=== PATIENT | female | born 1955 | race Caucasian/White ===

== ENCOUNTER → 2016-12-22 | Outpatient (CLI) | payer BC ==
--- NOTE | 2016-12-22 14:29 | CT ---
EXAMINATION TYPE: CT sinus wo con DATE OF EXAM: 12/22/2016 7:35 AM COMPARISON: NONE HISTORY: Patient complains of left side sinus blockage, pressure, and swelling. CT DLP: 603 mGycm Automated exposure control for dose reduction was used. Helical acquisition through the paranasal sinuses, coronal reconstructions FINDINGS: Mucoperiosteal thickening present within the sphenoid, bilateral maxillary sinuses. The ostiomeatal u nits are patent. Deviated nasal septum towards the left. The orbits show a symmetric appearance. Mola rs bilaterally show portions which appear to be present within the antrum of the left and right maxil cristopher sinus. Temporomandibular joints show some degenerative change. IMPRESSION: FINDINGS COMPATIBLE WITH CHRONIC SINUSITIS DESCRIBED.
== END | disposition home or self-care (01) ==
LOC: RADCTMAIN 07:19
PROVIDERS: ATTEND Otolaryngology
DX: J32.9 Chronic sinusitis, unspecified (principal)
CPT/HCPCS: 70486

== ENCOUNTER → 2017-04-10 | Outpatient (CLI) | payer BC | END | disposition home or self-care (01) | LOC: LABWHC1 13:10 | PROVIDERS: ATTEND Otolaryngology | DX: Z53.9 Procedure and treatment not carried out, unspecified reason (principal) ==

== ENCOUNTER → 2018-12-21 | Outpatient (CLI) | payer BC ==
[2018-12-21 17:30] LABS: LDL Cholesterol,Calculated 132.2 mg/dL (0.0-131.0); VLDL Calculation 24.8 mg/dL (5.00-40.00)
== END ==
LOC: LABWHC1 10:44
PROVIDERS: ATTEND Family Medicine
DX: E78.5 Hyperlipidemia, unspecified (principal)
CPT/HCPCS: 36415; 80061

== ENCOUNTER 2019-01-07 09:13 | Day surgery (SDC) | payer BC ==
[2019-01-02 16:21] VITALS: BMI 29.2
[~2019-01-07 09:13] MED LIST: LACTATED RINGERS 1,000 ML IV SCH; LIDOCAINE 1% 20 ML VIAL (10MG/ML) FOR IV START INTRADERMA PRN; MIDAZOLAM (PF) 2 MG/2 ML VIAL IV PRN
[2019-01-07 09:39] VITALS: RESP 16; TEMP 98.2
[2019-01-07] MEDS ORDERED: LIDOCAINE 1% INJ 10MG/ML (20 ML MDV) ONE (10:38)
[2019-01-07] MEDS ORDERED: PROPOFOL 10 MG/ML 20 ML VIAL IV ONE (10:38)
--- NOTE | 2019-01-07 10:41 | P.GSHP ---
History of Present Illness H&P Date: 01/07/19 Chief Complaint: Screening colonoscopy This is a 63-year-old female who presents today for screening colonoscopy. Patient denies a significant GI complaints. Past Medical History Additional Past Medical History / Comment(s): LYMES DISEASE, History of Any Multi-Drug Resistant Organisms: None Reported Past Surgical History: Appendectomy, Hysterectomy, Tonsillectomy Additional Past Surgical History / Comment(s): EXPLORATORY LAPAROTOMY Past Anesthesia/Blood Transfusion Reactions: No Reported Reaction Smoking Status: Former smoker - Past Family History Mother Family Medical History: Cancer Medications and Allergies Home Medications Medication Instructions Recorded Confirmed Type Colesevelam [Welchol] 1,250 mg PO 1200 01/02/19 01/07/19 History Naltrexone Compound 0.5 mg PO DAILY 01/02/19 01/07/19 History Progesterone, Micronized 100 mg PO HS 01/02/19 01/07/19 History [Progesterone] Allergies Allergy/AdvReac Type Severity Reaction Status Date / Time STEROIDS Allergy HYPER, AND Uncoded 01/07/19 09:30 SHAKY FEELING" Surgical - Exam Vital Signs Temp Pulse Resp BP Pulse Ox 98.2 F 83 16 151/63 96 01/07/19 09:35 01/07/19 09:35 01/07/19 09:35 01/07/19 09:35 01/07/19 09:35 - General well developed, well nourished, no distress - Eyes PERRL - ENT normal pinna - Neck no masses - Respiratory normal expansion - Cardiovascular Rhythm: regular - Abdomen Abdomen: soft, non tender Assessment and Plan Assessment: We'll perform screening colonoscopy.
--- NOTE | 2019-01-07 11:06 | P.OP ---
Date of Procedure: 01/07/19 Preoperative Diagnosis: Screening colonoscopy Postoperative Diagnosis: Diverticulosis Procedure(s) Performed: Colonoscopy Anesthesia: MAC Surgeon: Jakob Cordero Pathology: none sent Condition: stable Disposition: PACU Description of Procedure: The patient's placed on the endoscopy table in the lateral position. She received IV sedation. Digital rectal exam was performed which revealed no abnormalities. Flexible colonoscope was then placed patient anus and passed throughout the entire colon. Ileocecal valve was visually. The cecum, ascending and transverse colon appeared normal. In the descending and sigmoid colon there is moderate diverticular changes. There is no evidence of diverticulitis. The scope was then brought back the rectum and this appeared normal. Scope was withdrawn for patient.
[2019-01-07 11:34] VITALS: BP 123/70; PULSE 76
== END 2019-01-07 11:35 | disposition home or self-care (01) ==
LOC: ORWHC2ENDO 09:13
PROVIDERS: ATTEND Surgery
DX: Z12.11 Encounter for screening for malignant neoplasm of colon (principal); K57.30 Diverticulosis of large intestine without perforation or abscess without bleeding; Z79.890 Hormone replacement therapy; Z79.899 Other long term (current) drug therapy; Z88.8 Allergy status to other drugs, medicaments and biological substances; Z86.19 Personal history of other infectious and parasitic diseases; Z87.891 Personal history of nicotine dependence
CPT/HCPCS: J2001; J2704; G0121

== ENCOUNTER → 2019-02-11 | Outpatient (CLI) | payer BC ==
--- NOTE | 2019-02-12 08:51 | MM ---
Reason for exam: screening (asymptomatic). Last mammogram was performed 2 years and 11 months ago. History: Patient is postmenopausal, has history of endometrial cancer at age 20, and is nulliparous. Family history of breast cancer in paternal grandmother. Took estrogen for 8 years. Took progesterone for 8 years. Taking unspecified hormones for 15 years. Physical Findings: A clinical breast exam by your physician is recommended on an annual basis and results should be correlated with mammographic findings. MG Screening Mammo w CAD Bilateral CC and MLO view(s) were taken. Prior study comparison: March 21, 2016, bilateral MG screening mammo w CAD. November 14, 2008, bilateral diagnostic digital mammog. The breast tissue is heterogeneously dense. This may lower the sensitivity of mammography. Left superior posterior depth asymmetry in the retroglandular clear space. ASSESSMENT: Incomplete: need additional imaging evaluation, BI-RAD 0 RECOMMENDATION: Special view mammogram of the left breast. If lesion persists on supplemental views, image directed ultrasound is recommended. [facility] will attempt to contact patient to return for supplemental views and ultrasound if indicated.
== END | disposition home or self-care (01) ==
LOC: RADMAMWWP 10:32
PROVIDERS: ATTEND Family Medicine
DX: Z12.31 Encounter for screening mammogram for malignant neoplasm of breast (principal); Z80.3 Family history of malignant neoplasm of breast
CPT/HCPCS: 77067

== ENCOUNTER → 2019-03-04 | Outpatient (CLI) | payer BC ==
--- NOTE | 2019-03-04 14:48 | MM ---
Reason for exam: additional evaluation requested from abnormal screening. Last mammogram was performed 1 month ago. History: Patient is postmenopausal, has history of endometrial cancer at age 20, and is nulliparous. Family history of breast cancer in paternal grandmother. Took estrogen for 8 years. Taking progesterone for 8 years beginning at age 57. Taking antineoplastic beginning at age 57. Taking unspecified hormones for 15 years. Physical Findings: Nurse did not find any significant physical abnormalities on exam. MG Work Up Mamm w CAD LT Spot compression MLO, XCCL, ML, and LM view(s) were taken of the left breast. Prior study comparison: February 11, 2019, bilateral MG screening mammo w CAD. March 21, 2016, bilateral MG screening mammo w CAD. The breast tissue is heterogeneously dense. This may lower the sensitivity of mammography. The questioned posterior superior asymmetric density appears to disperse. Precautionary 6 month follow up recommended. These results were verbally communicated with the patient and result sheet given to the patient on 03/04/19. ASSESSMENT: Probably benign, BI-RAD 3 RECOMMENDATION: Follow-up diagnostic mammogram of the left breast in 6 months.
== END ==
LOC: RADMAMWWP 13:47
PROVIDERS: ATTEND Family Medicine
DX: R92.8 Other abnormal and inconclusive findings on diagnostic imaging of breast (principal)
CPT/HCPCS: 77065

== ENCOUNTER → 2021-10-20 | Outpatient (CLI) | payer BC ==
--- NOTE | 2021-10-22 10:37 | MM ---
Reason for exam: screening (asymptomatic). Last mammogram was performed 2 years and 8 months ago. History: Patient is postmenopausal, has history of endometrial cancer at age 20, and is nulliparous. Family history of breast cancer in sister at age 70 and breast cancer in paternal grandmother. Took estrogen for 8 years. Taking progesterone for 8 years beginning at age 57. Taking antineoplastic beginning at age 57. Taking unspecified hormones for 15 years. Physical Findings: A clinical breast exam by your physician is recommended on an annual basis and results should be correlated with mammographic findings. MG 3D Screening Mammo W/Cad Bilateral CC and MLO view(s) were taken. Prior study comparison: March 04, 2019, left breast MG work up mamm w CAD LT. February 11, 2019, bilateral MG screening mammo w CAD. The breast tissue is extremely dense which could obscure a lesion on mammography. Benign appearing bilateral calcifications. There is no discrete abnormality. No significant changes when compared with prior studies. ASSESSMENT: Benign, BI-RAD 2 RECOMMENDATION: Routine screening mammogram of both breasts in 1 year.
== END | disposition home or self-care (01) ==
LOC: RADMAMWWP 14:43
PROVIDERS: ATTEND Family Medicine
DX: Z12.31 Encounter for screening mammogram for malignant neoplasm of breast (principal); Z78.0 Asymptomatic menopausal state; Z80.3 Family history of malignant neoplasm of breast; Z85.42 Personal history of malignant neoplasm of other parts of uterus
CPT/HCPCS: 77063; 77067

== ENCOUNTER → 2022-02-11 | Outpatient (CLI) | payer BC ==
[2022-02-11 14:19] LABS: Chol/HDL Ratio 3.24 Ratio
== END | disposition home or self-care (01) ==
LOC: LABWHC1 09:13
PROVIDERS: ATTEND Family Medicine
DX: Z00.00 Encounter for general adult medical examination without abnormal findings (principal)
CPT/HCPCS: 36415; 80061

== ENCOUNTER → 2022-05-13 | Outpatient (CLI) | payer BC ==
[2022-05-13 14:50] LABS: Estradiol 26.6 pg/mL; Follicle Stimulating Hormone 52.9 mIU/mL
[2022-05-13 14:53] LABS: Progesterone 2.1 ng/mL; Testosterone <2.50 ng/mL (7.00-45.62)
== END | disposition home or self-care (01) ==
LOC: LABWHC1 09:13
PROVIDERS: ATTEND Specialist
DX: I10 Essential (primary) hypertension (principal); E34.9 Endocrine disorder, unspecified; E03.9 Hypothyroidism, unspecified; E55.9 Vitamin D deficiency, unspecified; E78.00 Pure hypercholesterolemia, unspecified
CPT/HCPCS: 36415; 82670; 83001; 84144; 84403; 84480

== ENCOUNTER → 2022-11-04 | Outpatient (CLI) | payer BC ==
--- NOTE | 2022-11-04 13:24 | CT ---
EXAMINATION: CT SCAN OF THE ABDOMEN AND PELVIS WITH INTRAVENOUS CONTRAST DATE OF EXAM: 11/04/2022 12:52 PM HISTORY: Severe abdominal pain. COMPARISON: None. TECHNIQUE: CT examination of the abdomen and pelvis was performed following the intravenous administr ation of 70 mL Isovue-370. CT dose lowering techniques were used, to include: automated exposure cont rol, adjustment for patient size, and/or use of iterative reconstruction. FINDINGS: ABDOMEN/PELVIS: Lower Chest: Normal. Liver: Normal. Gallbladder/Billary: Normal. Pancreas: Normal. Spleen: Normal. Adrenal Glands: Normal. Kidneys: Normal. GI Tract: There is mild sigmoid colonic diverticulosis without evidence of diverticulitis. The append ix is not clearly seen with no secondary changes of appendicitis otherwise identified. Mesentery/Peritoneum: Normal. Vasculature: Mild vascular calcification throughout the abdominal aorta without evidence of aneurysma l dilation or dissection. Lymph Nodes: Normal. Abdominal Wall: Normal. Bladder: Normal. Reproductive: Normal. Musculoskeletal: There are multilevel degenerative disc and facet changes seen throughout the spine. There are no aggressive osseous lesions. IMPRESSION: 1. Acute process seen within the abdomen or pelvis. 2. Diverticulosis without evidence of diverticulitis.
== END | disposition home or self-care (01) ==
LOC: RADCTMAIN 10:36
PROVIDERS: ATTEND Surgery Plastic and Reconstructive Surgery
DX: K57.32 Diverticulitis of large intestine without perforation or abscess without bleeding (principal)
CPT/HCPCS: 74177; Q9967

== ENCOUNTER → 2023-03-16 | Outpatient (CLI) | payer MEDICARE ==
[2023-03-16 19:31] LABS: Basophils # (A) 0.04 X 10*3/uL (0.00-0.10); Basophils % (A) 0.7 %; Eosinophils # (A) 0.11 X 10*3/uL (0.04-0.35); HCT 38.8 % (37.2-46.3); HGB 12.9 g/dL (12.0-15.0); Immature Grans, Automated 0.4 %; Lymphocytes # (A) 2.18 X 10*3/uL (0.90-5.00); Lymphocytes % (A) 39.4 %; MCH 32.3 pg (27.0-32.0); MCHC 33.2 g/dL (32.0-37.0); Mean Platelet Volume 9.8 fL (9.5-12.2); Monocytes # (A) 0.41 X 10*3/uL (0.20-1.00); Monocytes % (A) 7.4 %; NRBC Per 100 WBC 0 /100 WBCS (0.0-0.0); Neutrophils # (A) 2.77 X 10*3/uL (1.80-7.70); Neutrophils % (A) 50.1 %; Platelet Count 239 X 10*3/uL (140-440); RDW 11.9 % (11.5-14.5); WBC 5.53 X 10*3/uL (4.50-10.00)
[2023-03-17 02:05] LABS: Potassium 4.3 mmol/L (3.5-5.5)
== END | disposition home or self-care (01) ==
LOC: LABPAT 10:32
PROVIDERS: ATTEND Surgery Plastic and Reconstructive Surgery
DX: Z01.812 Encounter for preprocedural laboratory examination (principal)
CPT/HCPCS: 36415; 80051; 85025

== ENCOUNTER 2023-03-17 11:55 | Day surgery (SDC) | payer MEDICARE ==
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
[~2023-03-17 11:55] MED LIST changes: +ACETAMINOPHEN TAB 500 MG TAB PO PRN; +ALVIMOPAN 12 MG CAPSULE PO PRN; +Antibiotics per Pharmacy 1 EACH MISC MISCELLANE PRN; +DEXAMETHASONE SOD PHOSPHATE 4 MG/ML 1 ML VIAL IV ONE; +HEPARIN SODIUM,PORCINE/PF 5,000 UNIT/0.5 ML SYRINGE SQ PRN; +HYDROmorphone 0.5 MG/0.5 ML SYRINGE IVP PRN; -LIDOCAINE 1% 20 ML VIAL (10MG/ML) FOR IV START INTRADERMA PRN; -MIDAZOLAM (PF) 2 MG/2 ML VIAL IV PRN; +MIDAZOLAM 2 MG/2 ML VIAL IV PRN; +ONDANSETRON 4 MG/2 ML VIAL IVP ONE; +metroNIDAZOLE-NS PMX 500 MG in SALINE 1 100ML.BAG IVPB PRN
[2023-03-17 12:59] LABS: Glucose,Whole Blood 100 mg/dL (70-110)
[2023-03-17 13:19] LABS: Basophils % (A) 0 %; Eosinophils # (A) 0.1 k/uL (0-0.7); Eosinophils % (A) 2 %; HCT 40.1 % (34.0-46.0); HGB 13.7 gm/dL (11.4-16.0); Lymphocytes # (A) 2.3 k/uL (1.0-4.8); Lymphocytes % (A) 43 %; MCH 32.1 pg (25.0-35.0); MCHC 34.3 g/dL (31.0-37.0); MCV 93.7 fL (80.0-100.0); Mean Platelet Volume 7.9; Monocytes # (A) 0.3 k/uL (0-1.0); Monocytes % (A) 6 %; Neutrophils # (A) 2.6 k/uL (1.3-7.7); Neutrophils % (A) 47 %; Platelet Count 262 k/uL (150-450); RBC 4.28 m/uL (3.80-5.40); RDW 12.4 % (11.5-15.5); WBC 5.5 k/uL (3.8-10.6)
[2023-03-17 13:32] LABS: ALT 19 U/L (4-34); AST 22 U/L (14-36); African American GFR (CKD) >90 (>60 ml/min/1.73 sqM); Albumin 4.6 g/dL (3.5-5.0); Alkaline Phosphatase 57 U/L (38-126); Anion Gap 10 mmol/L; Blood Urea Nitrogen 10 mg/dL (7-17); Calcium 9.7 mg/dL (8.4-10.2); Carbon Dioxide 22 mmol/L (22-30); Chloride 108 mmol/L (98-107); Glucose 96 mg/dL (74-99); Non-African American GFR(CKD) >90 (>60 ml/min/1.73 sqM); Potassium 4.4 mmol/L (3.5-5.1); Sodium 140 mmol/L (137-145); Total Bilirubin 0.6 mg/dL (0.2-1.3); Total Protein 7.6 g/dL (6.3-8.2)
[2023-03-17] MEDS ORDERED: MIDAZOLAM 2 MG/2 ML VIAL IV ONE (14:05)
[2023-03-17] MEDS ORDERED: fentaNYL (PF) 50 MCG/1 ML VIAL IV ONE (14:05)
[2023-03-17] MEDS ORDERED: NA PHOS,M-B/NA PHOS,DI-BA 133 ML ENEMA RECTAL ONE ×2 (14:28→14:40)
--- NOTE | 2023-03-17 14:53 | P.ANPRN ---
Procedure Note - Anesthesia - Nerve Block Performed Bilateral Erector Spinae Time Out Performed: Yes (14:04) Date of Procedure: 03/17/23 Procedure Start Time: 14:04 Procedure Stop Time: 14:10 Location of Patient: PreOp Indication: Acute Post-Operative Pain, Requested by Surgeon (Dr Childress) Sedation Type: Sedate with meaningful contact maintained Preparation: Sterile Prep Position: Prone Catheter: None Needle Types: Pajunk Needle Gauge: 21 Ultrasound used to visualize needle placement: Yes Ultrasound used to observe medication spread: Yes Injectate: 0.5% Ropivacaine (see comment for volume) (15cc +10cc PF Normal saline each side) Blood Aspirated: No Pain Paresthesia on Injection Noted: No Resistance on Injection: Normal Image Stored and Saved: Yes Events: Uneventful and Well Tolerated
[2023-03-17] MEDS ORDERED: SODIUM CHLORIDE 0.9% (PF) 10 ML VIAL ONE (15:10)
[2023-03-17] MEDS ORDERED: LIDOCAINE 2% INJ 20 MG/ML (2 ML VIAL) ONE (15:10)
[2023-03-17] MEDS ORDERED: HEPARIN SODIUM,PORCINE 5,000 UNIT/ML 1 ML VIAL ONE (15:10)
[2023-03-17] MEDS ORDERED: ROPIVACAINE 5 MG/ML 30 ML VIAL ONE (15:10)
[2023-03-17] MEDS ORDERED: SUCCINYLCHOLINE CHLORIDE 200 MG/10 ML VIAL IV ONE (15:10)
[2023-03-17] MEDS ORDERED: MIDAZOLAM 2 MG/2 ML VIAL ONE (15:10)
[2023-03-17] MEDS ORDERED: fentaNYL (PF) 50 MCG/ML 2 ML AMP ONE (15:10)
[2023-03-17] MEDS ORDERED: PROPOFOL 10 MG/ML 20 ML VIAL IV ONE (15:10)
[2023-03-17 16:09] VITALS: TEMP 97
--- NOTE | 2023-03-17 16:18 | P.OP ---
Date of Procedure: 03/17/23 Description of Procedure: SURGEON: LINDA CHILDRESS MD PREOPERATIVE DIAGNOSES: 1. Sigmoid diverticulosis POSTOPERATIVE DIAGNOSES: 1. Sigmoid diverticulosis 2. Chronic constipation OPERATION: 1. Aborted Robotic-assisted daVinci Xi sigmoid colectomy 2. Intraoperative colonoscopy used for sigmoidoscopy Anesthesia: GETA Estimated Blood Loss (ml): 0 Pathology: None Condition: stable Disposition: Same Day COMPLICATIONS: None. Operative Findings: 1. Moderate semisolid stool present within sigmoid colon despite rectal enemas 2. Due to moderate persistent stool burden, semisolid, procedure canceled INDICATIONS: The patient is a 67-year-old female who presents with change in bowel habits, sigmoid diverticulosis with tortuous colon. Discussion of her prep was reviewed. Risks of poor prep including complications such as colostomy bag including leaks, open procedure were reviewed. Patient demonstrated verbal understanding that she wished to avoid these increased risks should persistent stool be identified intraoperatively. Colonoscopy assessment was discussed prior to proceeding to surgical portion of the operation. Review of intraoperative sigmoidoscopy is performed as portion of the procedure to assess anastomosis including will be used prior to proceeding with surgical portion of the case. Benefits and risks of surgical intervention was described including possibility of aborting the procedure, infection, injury to the ureter, open, colostomy creation, possibility for additional surgery was discussed at length. Informed consent was obtained. All questions of the patient were answered. DESCRIPTION: Earlier the patient had undergone a bowel prep using the enhanced colon recovery program from home. Patient undergone block. Patient reported having some flecks of stool however not moderate. Rectal enemas were performed in the preoperative surgical area. She was brought to the operating room. After general induction, the perineum were prepped and draped in standard sterile fashion. After a timeout protocol was performed, digital rectal exam was performed. A Olympus colonoscope was advanced along the sigmoid colon where brown moderate liquid stool with thick brown stool completely encased the colonoscope through the sigmoid colon that had been fastidious to the lens prohibiting any further view of the mucosa. On this finding and discussion with the patient preoperatively, the procedure was aborted due to poor prep despite attempts preoperatively. The patient had tolerated the procedure well. She was extubated successfully. The patient was transferred to the postanesthesia care unit in stable condition. Intraoperative findings were described in detail to the patient's family. Plan - Discharge Summary Discharge Rx Participant: No New Discharge Prescriptions: No Action Colesevelam [Welchol] 1,875 mg PO 1200 Progesterone, Micronized [Progesterone] 200 mg PO HS Vitamin E Acetate [Vitamin E] 268 mg PO QAM Mitochondrial Recharge 3 tab PO TID Magnesium Malate 283 mg PO HS Csa Formula Tinture 30 drops PO BID Zinc Sulfate 50 mg PO QAM Ascorbic Acid [Vitamin C] 1,000 mg PO QAM Kiac-Zutm-Fa 2,250 mg PO QAM Fluconazole [Diflucan] 100 mg PO Q2D Candibactrin Br 2 cap PO HS Multivitamins, Thera [Multivitamin (formulary)] 1 tab PO QAM Ivermectin [Stromectol] 12 mg PO Q2D Sun-E-400 268 mg PO QAM Levothyroxine Sodium [Synthroid] 50 mcg PO QAM Curcumin-Phosphatidylcholine [Curcumin Phytosome] 250 mg PO TID Cholecalciferol (Vitamin D3) [Vitamin D3 (50 Mcg = 2000 Iu) Chew Tab] 50 mcg PO QAM Discharge Medication List Colesevelam [Welchol] 1,875 mg PO 1200 01/02/19 [History] Progesterone, Micronized [Progesterone] 200 mg PO HS 01/02/19 [History] Csa Formula Tinture 30 drops PO BID 12/21/22 [History] Ivermectin [Stromectol] 12 mg PO Q2D 12/21/22 [History] Magnesium Malate 283 mg PO HS 12/21/22 [History] Mitochondrial Recharge 3 tab PO TID 12/21/22 [History] Multivitamins, Thera [Multivitamin (formulary)] 1 tab PO QAM 12/21/22 [History] Vitamin E Acetate [Vitamin E] 268 mg PO QAM 12/21/22 [History] Ascorbic Acid [Vitamin C] 1,000 mg PO QAM 03/15/23 [History] Candibactrin Br 2 cap PO HS 03/15/23 [History] Cholecalciferol (Vitamin D3) [Vitamin D3 (50 Mcg = 2000 Iu) Chew Tab] 50 mcg PO QAM 03/15/23 [History] Curcumin-Phosphatidylcholine [Curcumin Phytosome] 250 mg PO TID 03/15/23 [History] Fluconazole [Diflucan] 100 mg PO Q2D 03/15/23 [History] Levothyroxine Sodium [Synthroid] 50 mcg PO QAM 03/15/23 [History] Yewu-Flqf-Uz 2,250 mg PO QAM 03/15/23 [History] Sun-E-400 268 mg PO QAM 03/15/23 [History] Zinc Sulfate 50 mg PO QAM 03/15/23 [History] Follow up Appointment(s)/Referral(s): Linda Childress MD [STAFF PHYSICIAN] - 1 Week Patient Instructions/Handouts: *Surgery [facility] - (Anesthesia) Discharge Instructions Outpatient Surgery, Colonoscopy (DC)
[2023-03-17 17:01] VITALS: RESP 16
[2023-03-17 17:14] VITALS: BP 145/77; PULSE 63
--- NOTE | 2023-03-17 18:36 | P.DS ---
Providers Date of admission: 03/17/23 11:55 Expected date of discharge: 03/17/23 Attending physician: Linda Childress Primary care physician: Beth Queen [facility] Course: Patient presents to the hospital to undergo sigmoid colectomy for severe sigmoid diverticulosis. Patient underwent surgery where findings of moderate retained stool found within her colon contraindicated for her procedure. As a result, patient discharged home with rescheduling of her procedure. Robotic sigmoid colectomy aborted. Patient Condition at Discharge: Good Plan - Discharge Summary Discharge Rx Participant: No New Discharge Prescriptions: Continue Colesevelam [Welchol] 1,875 mg PO 1200 Progesterone, Micronized [Progesterone] 200 mg PO HS Vitamin E Acetate [Vitamin E] 268 mg PO QAM Mitochondrial Recharge 3 tab PO TID Magnesium Malate 283 mg PO HS Csa Formula Tinture 30 drops PO BID Zinc Sulfate 50 mg PO QAM Ascorbic Acid [Vitamin C] 1,000 mg PO QAM Zbrr-Puib-Pr 2,250 mg PO QAM Fluconazole [Diflucan] 100 mg PO Q2D Candibactrin Br 2 cap PO HS Multivitamins, Thera [Multivitamin (formulary)] 1 tab PO QAM Ivermectin [Stromectol] 12 mg PO Q2D Sun-E-400 268 mg PO QAM Levothyroxine Sodium [Synthroid] 50 mcg PO QAM Curcumin-Phosphatidylcholine [Curcumin Phytosome] 250 mg PO TID Cholecalciferol (Vitamin D3) [Vitamin D3 (50 Mcg = 2000 Iu) Chew Tab] 50 mcg PO QAM Discharge Medication List Colesevelam [Welchol] 1,875 mg PO 1200 01/02/19 [History] Progesterone, Micronized [Progesterone] 200 mg PO HS 01/02/19 [History] Csa Formula Tinture 30 drops PO BID 12/21/22 [History] Ivermectin [Stromectol] 12 mg PO Q2D 12/21/22 [History] Magnesium Malate 283 mg PO HS 12/21/22 [History] Mitochondrial Recharge 3 tab PO TID 12/21/22 [History] Multivitamins, Thera [Multivitamin (formulary)] 1 tab PO QAM 12/21/22 [History] Vitamin E Acetate [Vitamin E] 268 mg PO QAM 12/21/22 [History] Ascorbic Acid [Vitamin C] 1,000 mg PO QAM 03/15/23 [History] Candibactrin Br 2 cap PO HS 03/15/23 [History] Cholecalciferol (Vitamin D3) [Vitamin D3 (50 Mcg = 2000 Iu) Chew Tab] 50 mcg PO QAM 03/15/23 [History] Curcumin-Phosphatidylcholine [Curcumin Phytosome] 250 mg PO TID 03/15/23 [History] Fluconazole [Diflucan] 100 mg PO Q2D 03/15/23 [History] Levothyroxine Sodium [Synthroid] 50 mcg PO QAM 03/15/23 [History] Gsbw-Yewv-Gb 2,250 mg PO QAM 03/15/23 [History] Sun-E-400 268 mg PO QAM 03/15/23 [History] Zinc Sulfate 50 mg PO QAM 03/15/23 [History] Follow up Appointment(s)/Referral(s): Linda Childress MD [STAFF PHYSICIAN] - 03/21/23 Patient Instructions/Handouts: *Sur[facility] - (Anesthesia) Discharge Instructions Outpatient Surgery, Colonoscopy (DC) Discharge Disposition: HOME SELF-CARE
== END 2023-03-17 17:15 | disposition home or self-care (01) ==
LOC: 2ORMAIN 11:55 → UNDOADMIN 11:55 → OR 11:55 → UNDODISIN 17:15 → OR 17:15
PROVIDERS: ATTEND Surgery Plastic and Reconstructive Surgery
DX: K57.30 Diverticulosis of large intestine without perforation or abscess without bleeding (principal); G40.909 Epilepsy, unspecified, not intractable, without status epilepticus; E07.9 Disorder of thyroid, unspecified; A69.29 Other conditions associated with Lyme disease; Z86.16 Personal history of COVID-19; L71.9 Rosacea, unspecified; Z53.8 Procedure and treatment not carried out for other reasons; Z85.41 Personal history of malignant neoplasm of cervix uteri; Z85.828 Personal history of other malignant neoplasm of skin; Z86.19 Personal history of other infectious and parasitic diseases; G89.29 Other chronic pain; M25.551 Pain in right hip; M54.50 Low back pain, unspecified; R53.82 Chronic fatigue, unspecified; Z87.19 Personal history of other diseases of the digestive system; Z87.891 Personal history of nicotine dependence; Z90.49 Acquired absence of other specified parts of digestive tract; Z90.710 Acquired absence of both cervix and uterus; Z98.51 Tubal ligation status; Z98.890 Other specified postprocedural states; Z80.1 Family history of malignant neoplasm of trachea, bronchus and lung; Z80.52 Family history of malignant neoplasm of bladder; Z80.8 Family history of malignant neoplasm of other organs or systems; Z79.890 Hormone replacement therapy; Z79.899 Other long term (current) drug therapy; Z88.8 Allergy status to other drugs, medicaments and biological substances; Z91.040 Latex allergy status
CPT/HCPCS: 64999; 86900; 86901; 80053; 85025; 86850; 45331; J2250; J0330; J1644 ×2; J0690; J2405; J3010 ×2; J2795; J2704; J2001

== ENCOUNTER 2023-03-22 11:27 | Inpatient (IN) | payer MEDICARE ==
[2023-03-22] MEDS ORDERED: SODIUM CHLORIDE 0.9% 1,000 ML IV STA (11:48)
[2023-03-22] MEDS: PIPERACILLIN-TAZOBACTAM 3.375 GM in SODIUM CHLORIDE 0.9% 100 ML IVPB SCH ×2 (12:18→21:17)
[2023-03-22] MEDS ORDERED: HYDROmorphone 0.5 MG/0.5 ML SYRINGE IVP PRN (12:20)
[2023-03-22] MEDS ORDERED: NALOXONE 0.4 MG/ML 1 ML VIAL IV PRN (12:20)
[2023-03-22] MEDS ORDERED: ONDANSETRON 4 MG/2 ML VIAL IVP PRN (12:20)
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
[2023-03-22 12:42] LABS: Basophils % (A) 0 %; Eosinophils # (A) 0.1 k/uL (0-0.7); Eosinophils % (A) 1 %; HCT 40.7 % (34.0-46.0); HGB 13.9 gm/dL (11.4-16.0); Lymphocytes % (A) 31 %; MCHC 34.1 g/dL (31.0-37.0); MCV 93.6 fL (80.0-100.0); Mean Platelet Volume 8.5; Monocytes # (A) 0.3 k/uL (0-1.0); Monocytes % (A) 4 %; Neutrophils # (A) 3.9 k/uL (1.3-7.7); Neutrophils % (A) 61 %; Platelet Count 268 k/uL (150-450); RBC 4.34 m/uL (3.80-5.40); RDW 12.4 % (11.5-15.5); WBC 6.4 k/uL (3.8-10.6)
[2023-03-22 13:10] LABS: ALT 25 U/L (4-34); AST 28 U/L (14-36); African American GFR (CKD) >90 (>60 ml/min/1.73 sqM); Albumin 4.4 g/dL (3.5-5.0); Alkaline Phosphatase 61 U/L (38-126); Amylase 40 U/L (30-110); Anion Gap 12 mmol/L; Blood Urea Nitrogen 9 mg/dL (7-17); Calcium 9.7 mg/dL (8.4-10.2); Carbon Dioxide 20 mmol/L (22-30); Chloride 107 mmol/L (98-107); Glucose 117 mg/dL (74-99); Lipase 38 U/L (23-300); Non-African American GFR(CKD) >90 (>60 ml/min/1.73 sqM); Potassium 4.2 mmol/L (3.5-5.1); Sodium 139 mmol/L (137-145); Total Bilirubin 0.6 mg/dL (0.2-1.3); Total Protein 7.6 g/dL (6.3-8.2)
[2023-03-22] MEDS: SODIUM CHLORIDE 0.9% 1,000 ML IV SCH (13:12)
[2023-03-22] MEDS ORDERED: HYDROmorphone 1 MG/ML 1 ML SYRINGE IVP PRN (18:01)
[2023-03-22] MEDS ORDERED: METOCLOPRAMIDE 5 MG/ML 2 ML VIAL IVP PRN (18:01)
[2023-03-22] MEDS ORDERED: PEG 3350 (420 GM/BTL) + LYTES 4,000 ML BOTTLE PO ONE (18:08)
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
[2023-03-23] MEDS: SODIUM CHLORIDE 0.9% 1,000 ML IV SCH ×4 (05:22→22:37)
[2023-03-23] MEDS: PIPERACILLIN-TAZOBACTAM 3.375 GM in SODIUM CHLORIDE 0.9% 100 ML IVPB SCH ×3 (05:30→22:36)
[2023-03-23] MEDS ORDERED: PROPOFOL 10 MG/ML 20 ML VIAL IV ONE (13:50)
[2023-03-23] MEDS ORDERED: LIDOCAINE 2% INJ 20 MG/ML (2 ML VIAL) ONE (13:50)
[2023-03-23] MEDS ORDERED: IV FLUID CONTINUATION 1,000 ML IV ONE (13:51)
[2023-03-23] MEDS ORDERED: SODIUM CHLORIDE 0.9% 2,000 ML IV ONE (15:22)
[2023-03-23] MEDS ORDERED: Antibiotics per Pharmacy 1 EACH MISC MISCELLANE PRN (15:23)
[2023-03-23] MEDS ORDERED: PEG 3350 (420 GM/BTL) + LYTES 4,000 ML BOTTLE PO ONE (15:25)
--- NOTE | 2023-03-23 15:32 | P.PCN ---
Date of Procedure: 03/23/23 Description of Procedure: PREOPERATIVE DIAGNOSIS: Diverticulitis History of large bowel obstruction Left lower quadrant abdominal pain POSTOPERATIVE DIAGNOSIS: Tubular adenoma rectum Tubular adenoma sigmoid colon Sigmoid diverticulosis An diverticulosis Internal hemorrhoids, grade 2 OPERATION: Colonoscopy to the ileocecal valve and appendiceal orifice, cecum Colonoscopy with cold forceps biopsy SURGEON: Linda Childress MD. ANESTHESIA: MAC. INDICATIONS: The patient is an 67-year-old female reports change in bowel habits, left lower quadrant abdominal pain including diverticulosis with diverticulitis. Benefits and risks were described and informed consent was obtained. DESCRIPTION OF PROCEDURE: The patient had undergone Sutab prep. The patient had been brought into the operating room and laid in the left lateral decubitus position. After adequate intravenous sedation, the rectum was examined with 2% lidocaine jelly. The prostate was unremarkable. External hemorrhoids were encountered. The rectal tone was within normal limits. No lesions were palpated in the rectal vault. An Olympus colonoscope was advanced until the cecum, ileocecal valve and appendiceal orifice were clearly viewed. The prep was excellent. Sigmoid diverticulosis was encountered, moderate of the sigmoid colon and pandiverticulosis. Colonic polyps were found and removed. No active bleeding was found. Retroflexion of the scope demonstrated grade 2 internal hemorrhoids without active bleeding or inflammation. The colon was desufflated. The patient had tolerated the procedure well. Withdrawal time was over 6 minutes. FINDINGS: Aronchick preparation quality scale 1 (1-5) Internal hemorrhoids, grade 2 External hemorrhoids, grade 2. No arteriovenous malformations. Sigmoid diverticulosis with pandiverticulosis Removal of 3 polyps: - Cold forceps biopsy at 20 cm from the anal verge, 4 mm adenoma, sigmoid colon - Cold forceps biopsy at 10 cm from the anal verge 2, 5 to 6 mm adenoma, rectum No active bleeding from diverticulosis was found. RECOMMENDATIONS: Recommend colon rection due to persistent left lower quadrant abdominal pain, diverticulosis, change in bowel habits of partial large bowel obstruction
[2023-03-23] MEDS: ACETAMINOPHEN TAB 500 MG TAB PO SCH (16:21)
[2023-03-23] MEDS: metroNIDAZOLE 500 MG TAB PO SCH ×2 (16:21→17:40)
[2023-03-23] MEDS: NEOMYCIN 500 MG TAB PO SCH ×2 (16:21→17:40)
[2023-03-23 17:05] LABS: Basophils % (A) 0 %; Eosinophils # (A) 0.1 k/uL (0-0.7); Eosinophils % (A) 2 %; HCT 40.4 % (34.0-46.0); Lymphocytes # (A) 2.2 k/uL (1.0-4.8); Lymphocytes % (A) 45 %; MCH 31.5 pg (25.0-35.0); MCHC 32.2 g/dL (31.0-37.0); MCV 97.9 fL (80.0-100.0); Mean Platelet Volume 7.5; Monocytes # (A) 0.3 k/uL (0-1.0); Monocytes % (A) 6 %; Neutrophils # (A) 2.2 k/uL (1.3-7.7); Neutrophils % (A) 45 %; Platelet Count 232 k/uL (150-450); RBC 4.13 m/uL (3.80-5.40); RDW 12.1 % (11.5-15.5); WBC 4.9 k/uL (3.8-10.6)
[2023-03-23 17:11] LABS: ALT 21 U/L (4-34); AST 21 U/L (14-36); African American GFR (CKD) >90 (>60 ml/min/1.73 sqM); Albumin 4.1 g/dL (3.5-5.0); Albumin/Globulin Ratio 1.4; Alkaline Phosphatase 50 U/L (38-126); Anion Gap 6 mmol/L; Blood Urea Nitrogen 5 mg/dL (7-17); Calcium 9.6 mg/dL (8.4-10.2); Carbon Dioxide 24 mmol/L (22-30); Chloride 107 mmol/L (98-107); Globulin 2.9 g/dL; Glucose 84 mg/dL (74-99); Non-African American GFR(CKD) >90 (>60 ml/min/1.73 sqM); Potassium 4.4 mmol/L (3.5-5.1); Sodium 137 mmol/L (137-145); Total Bilirubin 0.5 mg/dL (0.2-1.3)
[2023-03-23 18:07] LABS: Glucose,Whole Blood 91 mg/dL (70-110)
[2023-03-24] MEDS: ACETAMINOPHEN TAB 500 MG TAB PO SCH ×5 (00:48→18:30)
[2023-03-24] MEDS: metroNIDAZOLE 500 MG TAB PO SCH (02:32)
[2023-03-24] MEDS: NEOMYCIN 500 MG TAB PO SCH (02:32)
[2023-03-24] MEDS: PIPERACILLIN-TAZOBACTAM 3.375 GM in SODIUM CHLORIDE 0.9% 100 ML IVPB SCH ×3 (04:07→20:30)
[2023-03-24] MEDS: SODIUM CHLORIDE 0.9% 1,000 ML IV SCH ×3 (04:38→17:43)
[2023-03-24] MEDS ORDERED: HEPARIN SODIUM,PORCINE/PF 5,000 UNIT/0.5 ML SYRINGE SQ PRN (05:00)
[2023-03-24] MEDS ORDERED: metroNIDAZOLE-NS PMX 500 MG in SALINE 1 100ML.BAG IVPB PRN (05:00)
[2023-03-24] MEDS ORDERED: SODIUM CHLORIDE 0.9% 1,000 ML IV ONE ×2 (06:39→09:43)
[2023-03-24] MEDS ORDERED: MELOXICAM 7.5 MG TAB PO PRN (07:00)
[2023-03-24] MEDS ORDERED: ALVIMOPAN 12 MG CAPSULE PO PRN (07:00)
[2023-03-24] MEDS ORDERED: DEXAMETHASONE SOD PHOSPHATE 4 MG/ML 1 ML VIAL IVP ONE (09:43)
[2023-03-24] MEDS ORDERED: MELOXICAM 7.5 MG TAB PO ONE (09:43)
[2023-03-24] MEDS ORDERED: fentaNYL (PF) 50 MCG/1 ML VIAL IVP ONE (10:06)
[2023-03-24] MEDS ORDERED: MIDAZOLAM 2 MG/2 ML VIAL IVP ONE (10:06)
[2023-03-24] MEDS ORDERED: HEPARIN SODIUM,PORCINE 5,000 UNIT/ML 1 ML VIAL SQ ONE (10:34)
--- NOTE | 2023-03-24 10:48 | P.ANPRN ---
Procedure Note - Anesthesia - Nerve Block Performed Bilateral Erector Spinae Time Out Performed: Yes (:) Date of Procedure: 03/24/23 Procedure Start Time: Procedure Stop Time: :16 Location of Patient: PreOp Indication: Acute Post-Operative Pain, Requested by Surgeon (Dr Stuart) Sedation Type: Sedate with meaningful contact maintained Preparation: Sterile Prep Position: Prone Catheter: None Needle Types: Pajunk Needle Gauge: 21 Ultrasound used to visualize needle placement: Yes Ultrasound used to observe medication spread: Yes Injectate: 0.5% Ropivacaine (see comment for volume) (15cc +10cc PF Normal saline each side) Blood Aspirated: No Pain Paresthesia on Injection Noted: No Resistance on Injection: Normal Image Stored and Saved: Yes Events: Uneventful and Well Tolerated
[2023-03-24] MEDS ORDERED: NEOSTIGMINE 1 MG/ML 10 ML VIAL ONE (11:15)
[2023-03-24] MEDS ORDERED: ROCURONIUM 10 MG/ML (5 ML VIAL) IV ONE (11:15)
[2023-03-24] MEDS ORDERED: LIDOCAINE 2% INJ 20 MG/ML (2 ML VIAL) ONE (11:15)
[2023-03-24] MEDS ORDERED: SUCCINYLCHOLINE CHLORIDE 200 MG/10 ML VIAL IV ONE (11:15)
[2023-03-24] MEDS ORDERED: ROPIVACAINE 5 MG/ML 30 ML VIAL ONE (11:15)
[2023-03-24] MEDS ORDERED: fentaNYL (PF) 50 MCG/ML 2 ML AMP ONE (11:15)
[2023-03-24] MEDS ORDERED: PROPOFOL 10 MG/ML 20 ML VIAL IV ONE (11:15)
[2023-03-24] MEDS ORDERED: MIDAZOLAM 2 MG/2 ML VIAL ONE (11:15)
[2023-03-24] MEDS ORDERED: SODIUM CHLORIDE 0.9% (PF) 10 ML VIAL ONE (11:15)
[2023-03-24] MEDS ORDERED: GLYCOPYRROLATE 0.2 MG/ML 2 ML VIAL ONE (11:15)
[2023-03-24] MEDS ORDERED: BUPIVACAIN-EPI 0.25%-1:200,000 30 ML VIAL SQ ONE ×2 (11:16→11:58)
[2023-03-24] MEDS ORDERED: LACTATED RINGERS 1,000 ML IV ONE ×3 (12:02→13:38)
[2023-03-24] MEDS ORDERED: HYDROmorphone 0.5 MG/0.5 ML SYRINGE IVP ONE ×2 (15:20→16:15)
[2023-03-24] MEDS ORDERED: KETOROLAC 15 MG/ML 1 ML VIAL IVP ONE (15:30)
[2023-03-24] MEDS ORDERED: NALOXONE 0.4 MG/ML 1 ML VIAL IV PRN (16:24)
[2023-03-24] MEDS ORDERED: BENZOCAINE/MENTHOL LOZENG 1 EACH LOZENGE MUCOUS MEM PRN (16:25)
[2023-03-24] MEDS ORDERED: fentaNYL PCA 500 MCG/50 ML BAG IV SCH (16:30)
--- NOTE | 2023-03-24 16:31 | P.OP ---
Date of Procedure: 03/24/23 Description of Procedure: SURGEON: MORE PARKS MD PREOPERATIVE DIAGNOSES: 1. Sigmoid diverticulitis 2. Lyme disease 3. Chronic fatigue syndrome POSTOPERATIVE DIAGNOSES: 1. Sigmoid diverticulitis 2. Lyme disease 3. Chronic fatigue syndrome OPERATION: 1. Robotic-assisted daVinci Xi sigmoid colectomy with low anterior resection using 29 mm Ethicon powered stapler 2. Intraoperative colonoscopy used for sigmoidoscopy Anesthesia: GETA, local, regional Estimated Blood Loss (ml): 5 Pathology: 1. Sigmoid colon 2. EEA donuts 3. Proximal colotomy Condition: stable Disposition: floor COMPLICATIONS: None. Operative Findings: 1. 2. Anastomosis with EEA stapler 29 mm 3. No tension or torsion along the anastomosis 4. Doughnuts thick and both sides and viable 5. Moderately redundant sigmoid colon without tension at anastomosis 6. Negative leak test with viable anastomosis. INDICATIONS: The patient is a 67-year-old female who presents with change in bowel habits, sigmoid diverticulosis with diverticulitis. She had colonoscopy . She has pre-existing persistent leukocytosis which was addressed by hematology. Benefits and risks of surgical intervention was described in detail including infection, injury to the ureter, colostomy creation, possibility for additional surgery was discussed at length. Informed consent was obtained. All questions of the patient and family were answered. DESCRIPTION: Earlier the patient had undergone a bowel prep using the enhanced colon recovery program. The patient was transferred to the operating room and placed supine. After general induction, the abdomen was prepped and draped in standard sterile fashion. Ioban was placed along the abdomen to minimize any contamination of skin floor. A Garcia catheter was placed. After a timeout protocol was performed, attention was then brought to the left upper quadrant whereby a 0 degree 5 mm laparoscopic trocar entry was performed. The abdominal cavity was entered and insufflated to 15 mmHg pressure, which was tolerated well. Diagnostic laparoscopy confirmed moderately redundant sigmoid colon and active sigmoid volvulus. The small bowel was unremarkable. Next a robotic 12-mm trocar was placed along the right lateral abdominal wall 20 cm superior from the pelvis. Two 8 mm ports were placed along the upper abdomen. Ports were placed 10 cm apart from each other including 20 cm away from the target anatomy of the left pelvis. The 12-mm port was exchanged for an 8 mm robotic port at the left upper quadrant. The robot was docked along the left lateral abdomen. The patient was positioned in steep Trendelenburg position at 21-degrees. Using atraumatic graspers and vessel sealer, the robotic system was docked and primed as described. Instruments were interchanged by the technical services assistant including hook cautery, needle xm1 tank driver, robotic stapler and vessel sealer. The robot stapler was prepared along the right lateral abdominal wall. The stapler 12-mm port was arranged along the right lateral abdominal wall. Next, attention was brought to identify the sigmoid colon. A stay suture using 3- 0 silk was placed along the anterior serosa of the redundant sigmoid colon. The sigmoid mesentery was mobilized using a vessel sealer whereby the descending colon was marked and tagged. Using multiple fires of the robot stapler 60 mm green load, the proximal sigmoid colon was divided. The mesentery of the sigmoid colon was mobilized towards the pelvic brim and sacral promontory using a vessel sealer. The sigmoid volvulus was reduced with viable colon. Next, the sigmoid colon was divided using the robotic stapler 60 mm black staple loads. The rest of the sigmoid colon mesentery was mobilized using vessel sealer. Additionally, the sigmoid colon was mobilized onto the colon to minimize injury to the ureters. I went to the foot of the bed to confirm sizers and placement of 29-mm Ethicon powered stapler. I re-scrubbed into the case. The robotic arms were temporarily undocked. A 29-mm anvil was placed with a 3-0 silk sutured at the tip of the anvil syrup blender. Then the anvil was placed via the left upper quadrant 12 mm port. All robotic arms were re-docked. I went back to the console. The staple line was opened using cautery. The anvil was entered into the proximal descending colon. The colotomy was closed using 60 mm green load. Next, the sharp tip of the anvil syrup blender was brought through the staple line. The anvil syrup blender was removed from the abdomen using empty clip appliers. I went to the foot of the bed to place the powered Ethicon 29 mm stapler via the rectum. The anvil and stapler were mated for 1 minute. The doughnuts were inta ct on both sides and thick. An intraoperative leak test was performed as I inserted the colonoscope to the anastomosis. Endoscopic images were obtained. Irrigation was placed in the pelvis and no air leaks were identified. Irrigation fluid was aspirated from the pelvis until dry. I went back to the console. All sponges and needles were removed from the abdominal cavity. The robot was undocked. I re-scrubbed into the case. Via the left upper quadrant port, the sigmoid colon was removed using 15 mm Endo Catch bag. All sponges were removed from the abdominal cavity. The left upper quadrant incision was widened to 3-cm. No contamination had occurred throughout the case. The fascial defect was oversewn using 0 Vicryl and a Khanh Recinos. Next all pneumoperitoneum was evacuated from the abdominal cavity. The 8-mm trocar sites were reapproximated using 4-0 Monocryl in an interrupted subcuticular fashion. Local anesthetic was infiltrated to all wounds for postop analgesia. All incisions were also cleansed with diluted hydrogen peroxide. An CareFlashell Ag advance surgical dressing was placed over the colon extraction site. Liquid glue was applied to the rest of the skin incisions. The patient had tolerated the procedure well. The patient was extubated successfully. The patient was transferred to the postanesthesia care unit in stable condition. Intraoperative findings were described in detail to the patient's family. Console time: 77 minutes
[2023-03-24] MEDS: KETOROLAC 15 MG/ML 1 ML VIAL IVP SCH (18:30)
[2023-03-24] MEDS: ONDANSETRON 4 MG/2 ML VIAL IVP SCH (18:32)
[2023-03-24] MEDS: SIMETHICONE 40 MG/0.6 ML DROPS 2,000 MG/30 ML BOTTLE PO SCH ×2 (18:34→21:42)
[2023-03-24] MEDS: HEPARIN SODIUM,PORCINE/PF 5,000 UNIT/0.5 ML SYRINGE SQ SCH (20:29)
[2023-03-24] MEDS: FAMOTIDINE 20 MG/2 ML VIAL IV SCH (20:30)
[2023-03-24 20:56] LABS: Basophils % (A) 0 %; Eosinophils % (A) 0 %; HCT 36.7 % (34.0-46.0); HGB 12.4 gm/dL (11.4-16.0); Lymphocytes # (A) 0.5 k/uL (1.0-4.8); Lymphocytes % (A) 5 %; MCH 32.2 pg (25.0-35.0); MCHC 33.8 g/dL (31.0-37.0); MCV 95.4 fL (80.0-100.0); Monocytes # (A) 0.3 k/uL (0-1.0); Monocytes % (A) 3 %; Neutrophils # (A) 9.5 k/uL (1.3-7.7); Neutrophils % (A) 92 %; Platelet Count 204 k/uL (150-450); RBC 3.85 m/uL (3.80-5.40); RDW 12.3 % (11.5-15.5); WBC 10.3 k/uL (3.8-10.6)
[2023-03-24 21:10] LABS: African American GFR (CKD) >90 (>60 ml/min/1.73 sqM); Anion Gap 10 mmol/L; Blood Urea Nitrogen 4 mg/dL (7-17); Calcium 8.7 mg/dL (8.4-10.2); Carbon Dioxide 21 mmol/L (22-30); Chloride 104 mmol/L (98-107); Glucose 113 mg/dL (74-99); Non-African American GFR(CKD) >90 (>60 ml/min/1.73 sqM); Potassium 4.3 mmol/L (3.5-5.1); Sodium 135 mmol/L (137-145)
[2023-03-25] MEDS: ONDANSETRON 4 MG/2 ML VIAL IVP SCH ×3 (00:28→11:22)
[2023-03-25] MEDS: KETOROLAC 15 MG/ML 1 ML VIAL IVP SCH ×3 (00:31→11:21)
[2023-03-25] MEDS: ACETAMINOPHEN TAB 500 MG TAB PO SCH ×4 (02:57→10:43)
[2023-03-25] MEDS: PIPERACILLIN-TAZOBACTAM 3.375 GM in SODIUM CHLORIDE 0.9% 100 ML IVPB SCH ×2 (03:50→11:20)
[2023-03-25] MEDS: SIMETHICONE 40 MG/0.6 ML DROPS 2,000 MG/30 ML BOTTLE PO SCH ×2 (08:05→12:00)
[2023-03-25] MEDS: HEPARIN SODIUM,PORCINE/PF 5,000 UNIT/0.5 ML SYRINGE SQ SCH (08:05)
[2023-03-25] MEDS: FAMOTIDINE 20 MG/2 ML VIAL IV SCH (08:05)
[2023-03-25] MEDS ORDERED: ALVIMOPAN 12 MG CAPSULE PO SCH (09:00)
[2023-03-25 14:10] VITALS: BP 125/74; PULSE 81; RESP 16; TEMP 97.4
--- NOTE | 2023-03-25 15:48 | P.DS ---
Providers Date of admission: 03/22/23 12:30 Expected date of discharge: 03/25/23 Attending physician: Linda Childress Primary care physician: Beth Queen [facility] Course: POSTOPERATIVE DIAGNOSES: 1. Sigmoid diverticulitis 2. Lyme disease 3. Chronic fatigue syndrome CHIEF COMPLAINT: Diverticulitis HISTORY OF PRESENT ILLNESS: The patient is a 67-year-old female who presented with diverticulitis. She is status post sigmoid colectomy. She is passing flatus and having bowel movements. Her pain is well-controlled. She is tolerating a low fiber diet. ROS: No reports of nausea and vomiting. No bowel movements. No fevers or chills. No new chest pain. No productive sputum PHYSICAL EXAM: VITAL SIGNS: Reviewed CONSTITUTIONAL: Well developed and in no acute distress. EYES: Conjuctivae without sclera icterus. Extraocular movements grossly intact. HEAD, EARS, NOSE, THROAT: Moist buccal mucosa. Head is atraumatic, normocephalic. Hears conversational speech. No nasal drainage. RESPIRATORY: Non-labored respirations and equal bilateral excursions. CARDIOVASCULAR: Palpable 2+ radial pulses. ABDOMEN: Incisions clean dry and intact. MUSCULOSKELETAL: No gross deformity of the lower extremities noted. No clubb ing. No cyanosis. SKIN: Good skin turgor. Well perfused. NEUROLOGIC: Cranial nerves II through XII grossly intact. No focal or lateralizing signs. PSYCH: Appropriate affect. Alert and oriented to person, place and time. CLINICAL LABS: Reviewed. WBC normal. ASSESSMENT: 1. Sigmoid diverticulitis PLAN: 1. Discharge instructions were reviewed in detail. 2. Patient reports feeling well and eager to go home. Overall stable for discharge. 3. Discharge instructions including diet, activity, restrictions reviewed. 4. Follow-up telehealth in 72 hours. Procedures: OPERATION: 1. Robotic-assisted daVinci Xi sigmoid colectomy with low anterior resection using 29 mm Ethicon powered stapler 2. Intraoperative colonoscopy used for sigmoidoscopy Anesthesia: GETA, local, regional Estimated Blood Loss (ml): 5 Pathology: 1. Sigmoid colon 2. EEA donuts 3. Proximal colotomy Condition: stable Disposition: floor COMPLICATIONS: None. Operative Findings: 1. 2. Anastomosis with EEA stapler 29 mm 3. No tension or torsion along the anastomosis 4. Doughnuts thick and both sides and viable 5. Moderately redundant sigmoid colon without tension at anastomosis 6. Negative leak test with viable anastomosis. Patient Condition at Discharge: Good Plan - Discharge Summary Discharge Rx Participant: Yes New Discharge Prescriptions: New Acetaminophen Tab [Tylenol Tab] 1,000 mg PO Q6HR PRN #30 tablet PRN Reason: Pain Ibuprofen [Motrin] 600 mg PO Q8HR PRN #30 tab PRN Reason: Pain Simethicone 40 mg/0.6 ml Drops [Mylicon Drops] 40 mg PO PCHS PRN #30 ml PRN Reason: Gas Discharge Medication List Acetaminophen Tab [Tylenol Tab] 1,000 mg PO Q6HR PRN #30 tablet 03/25/23 [Rx] Ibuprofen [Motrin] 600 mg PO Q8HR PRN #30 tab 03/25/23 [Rx] Simethicone 40 mg/0.6 ml Drops [Mylicon Drops] 40 mg PO PCHS PRN #30 ml 03/25/23 [Rx] Follow up Appointment(s)/Referral(s): Beth Queen DO [Primary Care Provider] - 1-2 days Linda Childress MD [STAFF PHYSICIAN] - 1 Week (TELEHEALTH - DR CALLS YOU AT HOME) Patient Instructions/Handouts: Colectomy (DC), Colectomy Diet (ED), Laparoscopic Bowel Resection (DC) Activity/Diet/Wound Care/Special Instructions: EXPECT BOWEL MOVEMENT WITH BLOOD FOR 1 WEEK TAKE LAXATIVE FOR CONSTIPATION AFTER 4 DAYS, 03/28/23 Wear abdominal binder for comfort. No lifting over 4 pounds in 4 weeks April 24March shower. No bath tub soaks for two weeks until April 07 Avoid steak, tough meats and seeds such as raspberry seeds. See diverticulitis, low fiber, colectomy diet Use Tylenol and ibuprofen scheduled for the next 24-48 hours for best pain relief. Use ice along incisions for today to prevent swelling. Discharge Disposition: HOME SELF-CARE
== END 2023-03-25 16:15 | disposition home or self-care (01) | DRG 329 ==
LOC: EC 11:27 → 4SSUR 12:30
PROVIDERS: ADMIT Surgery Plastic and Reconstructive Surgery; ATTEND Surgery Plastic and Reconstructive Surgery
PROC: 0DBP8ZX Excision of Rectum, Via Natural or Artificial Opening Endoscopic, Diagnostic (ICD-10-PCS; 2023-03-23)
PROC: 0DBN8ZX Excision of Sigmoid Colon, Via Natural or Artificial Opening Endoscopic, Diagnostic (ICD-10-PCS; 2023-03-23)
PROC: 0DBN4ZZ Excision of Sigmoid Colon, Percutaneous Endoscopic Approach (ICD-10-PCS; principal; 2023-03-24 10:50)
PROC: 0DJD8ZZ Inspection of Lower Intestinal Tract, Via Natural or Artificial Opening Endoscopic (ICD-10-PCS; principal; 2023-03-24 10:50)
PROC: 8E0W4CZ Robotic Assisted Procedure of Trunk Region, Percutaneous Endoscopic Approach (ICD-10-PCS; principal; 2023-03-24 10:50)
DX: K57.32 Diverticulitis of large intestine without perforation or abscess without bleeding (principal); K56.2 Volvulus; A69.20 Lyme disease, unspecified; Z28.310 Unvaccinated for COVID-19; U09.9 Post COVID-19 condition, unspecified; R41.9 Unspecified symptoms and signs involving cognitive functions and awareness; G93.32 Myalgic encephalomyelitis/chronic fatigue syndrome; K64.4 Residual hemorrhoidal skin tags; E07.9 Disorder of thyroid, unspecified; D12.8 Benign neoplasm of rectum; D12.5 Benign neoplasm of sigmoid colon; K64.1 Second degree hemorrhoids; K58.9 Irritable bowel syndrome, unspecified; G89.29 Other chronic pain; M54.50 Low back pain, unspecified; Z85.41 Personal history of malignant neoplasm of cervix uteri; Z85.828 Personal history of other malignant neoplasm of skin; Z87.891 Personal history of nicotine dependence; Z91.040 Latex allergy status; Z88.8 Allergy status to other drugs, medicaments and biological substances; Z91.018 Allergy to other foods
CPT/HCPCS: 36415; 45380; 64999; 80048; 80053; 82150; 83605; 83690; 85025; 86850; 86900; 86901; 88305; 88307; 96365; 96366; 99284